=== PATIENT | female | born 1990 | race Caucasian/White ===

== ENCOUNTER 2016-06-12 08:26 | Emergency (ER) | payer BC ==
[2016-06-12 08:51] VITALS: BP 111/69
--- NOTE | 2016-06-12 09:06 | UC ---
Abdominal Pain Female HPI - HPI Summary HPI Summary: She has had "constipation" and irregular stools for years. She has not had a stomach specialist. Generally symptoms improve with BM. NO fever, blood or wt loss. Typically symptoms do not wake her up from sleep. in the past week, she has tried laxatives and BM has been every 2-3 days and loose with bloating, gas and foul smelling. no sick contacts at home. - History of Current Complaint Chief Complaint: UCGI Stated Complaint: ABDOMINAL PAIN/CONSTIPATION Time Seen by Provider: 06/12/16 09:00 Hx Obtained From: Patient Hx Last Menstrual Period: 05/27/16 ?: No Onset/Duration: Gradual Onset Severity Initially: Moderate Severity Currently: Mild Location: Diffuse - she describes it as diffuse lower and points and waves her hands over the entire periumbilical and lower abd areas. Character: Aching, Cramping, Dull Aggravating Factor(s): Nothing Alleviating Factor(s): Nothing Associated Signs and Symptoms: Positive: Decreased Appetite, Nausea. Negative: Diaphoresis, Fever, Cough, Chest Pain, Dizzy, Blood in Stool, Urinary Symptoms, Vaginal Bleeding, Vomiting, Diarrhea Allergies/Adverse Reactions: Allergies Allergy/AdvReac Type Severity Reaction Status Date / Time Penicillins Allergy Hives Verified 06/12/16 08:46 PMH/Surg Hx/FS Hx/Imm Hx Endocrine History Of: Denies: Diabetes - Surgical History Surgical History: Yes Surgery Procedure, Year, and Place: tonsilectomy. - Family History Known Family History: Negative: Diabetes - Social History Occupation: Student Alcohol Use: None Substance Use Type: None Smoking Status (MU): Never Smoked Tobacco Review of Systems Genitourinary: Negative All Other Systems Reviewed And Are Negative: Yes Physical Exam Triage Information Reviewed: Yes Appearance: Well-Appearing, No Pain Distress, Well-Nourished Vital Signs: Initial Vital Signs Temp 98.6 F 06/12/16 08:46 Pulse 79 06/12/16 08:46 Resp 18 06/12/16 08:46 BP 111/69 06/12/16 08:46 Pulse Ox 99 06/12/16 08:46 Vital Signs Reviewed: Yes Eye Exam: Normal Eyes: Positive: Conjunctiva Clear. Negative: Conjunctiva Inflamed ENT: Positive: Normal ENT inspection, Hearing grossly normal, Pharynx normal. Negative: Pharyngeal erythema, Nasal congestion, Nasal drainage, TMs normal, TM bulging, TM dull, TM red, Tonsillar swelling, Tonsillar exudate, Trismus Neck exam: Normal Neck: Positive: Supple, Nontender, No Lymphadenopathy. Negative: Nuchal Rigidity Respiratory Exam: Normal Respiratory: Positive: Chest non-tender, Lungs clear, Normal breath sounds, No respiratory distress, No accessory muscle use. Negative: Respiratory distress, Decreased breath sounds, Accessory muscle use, Crackles, Rhonchi, Stridor, Wheezing, Expiration Cardiovascular Exam: Normal Cardiovascular: Positive: RRR, No Murmur, Pulses Normal. Negative: Tachycardia Abdomen Description: Positive: No Organomegaly, Soft, Other: - diffusely tender with the worst areas of pain being periumbilical, right and left periumbilical, suprpubic, and R/L lower quadrants. Upper quadrants are tender as well but less so. no guarding or rebound. no cvat. Bowel Sounds: Positive: Hyperactive Musculoskeletal: Positive: Strength Intact, ROM Intact, No Edema Neurological Exam: Normal Neurological: Positive: Alert, Muscle Tone Normal. Negative: Fatigued, Lethargic, Unresponsive Psychological Exam: Normal Skin Exam: Normal Skin: Negative: rashes Abd Pain Female Course/Dx - Course Course Of Treatment: Her vitals and history are benign. this appears to have been going on intermittently for years but this happens to be a more significant episode. vitals wnl and exam reveals a non surgical or worrisome abd. Differential is long and therefore I believe GI referral is in order. She agrees to return here immediately or call 911 for any worsening symptoms[address] CT not warranted at this time emergently without consultation as risks of radiation to this young female outweight benefits with such as diffuse presentation. WE will include U preg, Ua, abd x ray. she fully agrees with plan. At this point, this is most c/w Irritable bowel. We also discussed her x ray and how to try to acheive more regular stools. - Differential Dx/Diagnosis Differential Diagnosis: Abdominal Aortic Aneurysm, Appendicitis, Bowel Obstruction, Constipation, Diverticulitis, Ectopic , Gall Bladder Disease, Hepatitis, Irritable Bowel Syndrome, Ovarian Cyst, Pancreatitis, Pelvic Inflammatory Disease, Peptic Ulcer Disease, Provider Diagnoses: DIffuse abd pain. bloating and cramping. Discharge - Discharge Plan Condition: Good Disposition: HOME Prescriptions: Lactulose* 15 ml PO TID #[id number] Patient Education Materials: Abdominal Pain (ED), Constipation (ED), High Fiber Diet (ED), Fleet Enema (ED) Referrals: Non Staff,Doctor [Primary Care Provider] - Karsten Chavarria MD [Medical Doctor] - Additional Instructions: You can also try mineral oil and prune juice.
--- NOTE | 2016-06-12 10:03 | RAD ---
HISTORY: Diffuse lower abdominal pain COMPARISONS: None VIEWS: Frontal supine and upright views of the abdomen. FINDINGS: BOWEL: There is a nonobstructive bowel gas pattern. There is a large amount of stool within the colon. CALCULI: There are no abnormal calculi. BONES AND SOFT TISSUES: There are no osseous abnormalities. OTHER FINDINGS: The lung bases are clear. There is no subphrenic gas. IMPRESSION: NONOBSTRUCTIVE BOWEL GAS PATTERN. LARGE AMOUNT OF STOOL WITHIN THE COLON
== END 2016-06-12 10:35 | disposition home or self-care (01) ==
LOC: UCCORT 08:26
DX: R10.33 Periumbilical pain (principal); R14.0 Abdominal distension (gaseous); R10.84 Generalized abdominal pain; Z32.02 Encounter for pregnancy test, result negative; Z88.0 Allergy status to penicillin
CPT/HCPCS: 74020; 81003; 84702; 99202; G0463